=== PATIENT | male | born 2000 | race Caucasian/White ===

== ENCOUNTER 2023-10-08 11:05 | Emergency (ER) | payer OTHER ==
[~2023-10-08] VITALS: Ht 177.8 cm; Wt 80.0 kg
[2023-10-08 11:20] VITALS: TEMP 98.6; O2SAT 100
[2023-10-08] MEDS ORDERED: NITROGLYCERIN OINT 1GM/INCH UDPKT TD ONE (13:15)
[2023-10-08 14:05] VITALS: BP 124/73; PULSE 72; RESP 18
[2023-10-08] MEDS: KETOROLAC 15MG/ML VIAL IV ONE (14:05)
[2023-10-08 14:53] LABS: BASOPHILS % 0.8 % (0.0-2.0); EOSINOPHILS % 1.6 % (0.0-5.0); HEMATOCRIT. 46.8 % (42.0-52.0); LYMPHOCYTES % 22.8 % (20.0-50.0); MEAN CORPUSCULAR HEMOGLOBIN 31.1 pg (28.0-32.0); MEAN CORPUSCULAR HGB CONC 34.2 g/dL (31.0-37.0); MEAN CORPUSCULAR VOLUME 90.8 fL (80.0-94.0); MEAN PLATELET VOLUME 7.9 fl (7.4-10.4); MONOCYTES % 10.7 % (2.0-8.0); NEUTROPHILS % 64.1 % (40.0-76.0); PLATELET 382 x1000/uL (130-400); RED BLOOD CELL COUNT 5.16 mill/uL (4.7-6.1); RED CELL DISTRIBUTION WIDTH 14.9 % (11.6-14.6); WHITE BLOOD COUNT 9.9 x1000/uL (4.5-11.0)
[2023-10-08 14:58] LABS: CARBON DIOXIDE 26 mEq/L (21-32); CHLORIDE 98 mEq/L (98-107); POTASSIUM 3.7 mEq/L (3.5-5.1); SODIUM 136 mEq/L (136-145)
[2023-10-08 14:59] LABS: CALCIUM 10.1 mg/dL (8.7-10.4)
[2023-10-08 15:03] LABS: CREATININE 1.1 mg/dL (0.6-1.3)
[2023-10-08 15:04] LABS: GLUCOSE 100 mg/dL (70-105); UREA NITROGEN BLOOD 11 mg/dL (9-23)
[2023-10-08 15:31] LABS: ETHANOL BLOOD < 10 mg/dL (<10)
== END 2023-10-08 15:25 | disposition left against medical advice (07) ==
LOC: ER 11:54
DX: I96 Gangrene, not elsewhere classified (principal)
CPT/HCPCS: 80048; 80320; 83880; 83605; 85025; 87040; 36415; 73620; 96374; 99291; J1885; G0480